=== PATIENT | male | born 1980 | race African-American/Black ===

== ENCOUNTER 2020-12-11 14:29 | Emergency (ER) | payer MEDICAID ==
[~2020-12-11] VITALS: Ht 182.9 cm; Wt 100.0 kg
[2020-12-11 14:35] VITALS: BP 146/80
== END 2020-12-11 15:12 | disposition left against medical advice (07) ==
LOC: ER 14:39 → EDBD 14:39 → ER 15:12
DX: G93.40 Encephalopathy, unspecified (principal); F19.10 Other psychoactive substance abuse, uncomplicated; F17.200 Nicotine dependence, unspecified, uncomplicated; F12.10 Cannabis abuse, uncomplicated; F15.10 Other stimulant abuse, uncomplicated; Z98.890 Other specified postprocedural states
CPT/HCPCS: 99283